=== PATIENT | female | born 1940 | race Hispanic/Latino ===

== ENCOUNTER 2016-12-26 18:05 | Emergency (ER) | payer MEDICARE ==
[2016-12-27 00:30] VITALS: BP 149/81
--- NOTE | 2016-12-27 00:51 | Cat Scan Report ---
FINAL REPORT EXAM: CT HEAD/BRAIN WO CON HISTORY: fall TAKES BLOOD THINNERS TECHNIQUE: Noncontrast CT axial images of the brain. PRIORS: None. FINDINGS: Minimal, extra-axial hyperdense focus over left anterior temporal region measuring approximately 2 mm in width suspicious for tiny subdural hematoma. No significant mass effect. No parenchymal mass, hemorrhage, midline shift or hydrocephalus. No evidence of acute cortical infarct. No other abnormal, extra-axial fluid or air collection. Age-related volume loss. Osseous calvarium grossly intact. Diffuse soft tissue edema or contusion in the left frontotemporal scalp. IMPRESSION: 1. Findings probably representing minimal subdural hematoma over left temporal region without significant mass effect. Clinical correlation and followup suggested. Dr. Owusu discussed results with Dr. Xiong on 27 Dec 2016 at approximately 0044 hours EST.
--- NOTE | 2016-12-27 00:56 | Emergency Department Report ---
ED Fall HPI - General Chief Complaint: Fall Stated Complaint: FALL/LUMP ON SIDE OF HEAD /AND WRIST Time Seen by Provider: 12/27/16 00:33 Source: patient Mode of arrival: Ambulatory - History of Present Illness Initial Comments: Pt is a 76 yr old F with a h/o Afib on eliquis who presents s/p fall. Pt reports she slipped in the kitchen and fell onto her L hip, L wrist, and struck the L side of head on the cabinet. Pt denies any LOC or neck pain. Pt now c/o mild MALONE, L wrist deformity and pain, and L hip pain. Otherwise no fevers, chills , neck pain, dizziness, vision changes, hearing changes, parasthesias, numbness , chest pain, sob, abd pain, or back pain - Related Data Previous Rx's Medication Instructions Recorded Last Taken Type Acetaminophen [Acetaminophen TAB] 650 mg PO Q4H PRN #20 tablet 12/08/16 Unknown Rx Amiodarone [Cordarone 200 MG TAB] 200 mg PO DAILY #30 tablet 12/08/16 Unknown Rx Eliquis 5 mg PO Q12H #60 12/08/16 Unknown Rx Furosemide [Lasix TAB] 40 mg PO QDAY #30 tablet 12/08/16 Unknown Rx HYDROcodone/APAP 5-325 [[place] 1 each PO Q6H PRN #20 tablet 12/08/16 Unknown Rx 5-325 mg TAB] Levothyroxine [Synthroid] 125 mcg PO QAM #30 tablet 12/08/16 Unknown Rx Lisinopril [Zestril TAB] 2.5 mg PO QDAY #15 tablet 12/08/16 Unknown Rx Metoprolol [Lopressor TAB] 25 mg PO BID #60 tablet 12/08/16 Unknown Rx Pravastatin Sodium [Pravastatin] 20 mg PO QHS #60 tablet 12/08/16 Unknown Rx Allergies Allergy/AdvReac Type Severity Reaction Status Date / Time No Known Allergies Allergy Verified 12/03/16 08:24 ED Review of Systems ROS: Stated complaint: FALL/LUMP ON SIDE OF HEAD /AND WRIST Other details as noted in HPI ED Past Medical Hx - Past Medical History Previous Medical History?: Yes Hx Hypertension: Yes Additional medical history: high colesterol, hypo thyroid, PE - Surgical History Past Surgical History?: Yes Hx Pacemaker: Yes (placed here 12/07/16) - Social History Smoking Status: Never Smoker Substance Use Type: None - Medications Home Medications: Home Medications Medication Instructions Recorded Confirmed Last Taken Type Acetaminophen [Acetaminophen TAB] 650 mg PO Q4H PRN #20 tablet 12/08/16 Unknown Rx Amiodarone [Cordarone 200 MG TAB] 200 mg PO DAILY #30 tablet 12/08/16 12/27/16 Unknown Rx Eliquis 5 mg PO Q12H #60 12/08/16 12/27/16 Unknown Rx Furosemide [Lasix TAB] 40 mg PO QDAY #30 tablet 12/08/16 12/27/16 Unknown Rx HYDROcodone/APAP 5-325 [[place] 1 each PO Q6H PRN #20 tablet 12/08/16 12/27/16 Unknown Rx 5-325 mg TAB] Levothyroxine [Synthroid] 125 mcg PO QAM #30 tablet 12/08/16 12/27/16 Unknown Rx Lisinopril [Zestril TAB] 2.5 mg PO QDAY #15 tablet 12/08/16 12/27/16 Unknown Rx Metoprolol [Lopressor TAB] 25 mg PO BID #60 tablet 12/08/16 12/27/16 Unknown Rx Pravastatin Sodium [Pravastatin] 20 mg PO QHS #60 tablet 12/08/16 12/27/16 Unknown Rx ED Physical Exam - General Limitations: No Limitations General appearance: alert, in no apparent distress - Head Head exam: Present: normocephalic, other (abrasion and hematoma to the L bahai) - Eye Eye exam: Present: normal appearance, PERRL, EOMI. Absent: scleral icterus, conjunctival injection - ENT ENT exam: Present: mucous membranes moist - Neck Neck exam: Present: normal inspection, full ROM. Absent: tenderness, meningismus, lymphadenopathy - Respiratory Respiratory exam: Present: normal lung sounds bilaterally. Absent: respiratory distress, wheezes, rales, rhonchi, stridor, chest wall tenderness - Cardiovascular Cardiovascular Exam: Present: regular rate, normal rhythm. Absent: systolic murmur, diastolic murmur, rubs, gallop - GI/Abdominal GI/Abdominal exam: Present: soft, normal bowel sounds. Absent: distended, tenderness, rebound - Extremities Exam Extremities exam: Present: tenderness (L wrist tenderness), normal capillary refill, joint swelling (L wrist with deformity, neurovascularly intact), other ( limited ROM of the L wrist due to pain, proper flexion and extension, FROM at the hips bilaterally). Absent: normal inspection, pedal edema - Back Exam Back exam: Present: normal inspection - Neurological Exam Neurological exam: Present: alert, oriented X3, CN II-XII intact, reflexes normal. Absent: motor sensory deficit - Psychiatric Psychiatric exam: Present: normal affect, normal mood - Skin Skin exam: Present: warm, dry, intact, normal color. Absent: rash ED Course Vital Signs 12/26/16 12/27/16 12/27/16 19:40 00:27 00:33 Temperature 98 F 98.1 F Pulse Rate 80 80 Respiratory 18 20 20 Rate Blood Pressure 153/95 Blood Pressure 149/81 [Left] O2 Sat by Pulse 94 96 96 Oximetry ED Medical Decision Making - Lab Data Result diagrams: 12/27/16 02:29 12/27/16 02:29 - Radiology Data Radiology results: report reviewed, image reviewed 0048: Rads results discussed , patient has a 2mm SDH with no shift or mass effect L wrist xray: (+)Fracture of radius, without angulation or displacement as visualized by me Pt placed in L sugar tong splint, post splinting, patient neurovascularly intact Case d/w [facility], patient set for transfer to ICU - Medical Decision Making Called out to [facility] center Critical care attestation.: If time is entered above; I have spent that time in minutes in the direct care of this critically ill patient, excluding procedure time. ED Disposition Clinical Impression: Fall, SDH (subdural hematoma), Radius fracture Disposition: DC/TX ANOTHER TYPE HEALTHCARE Is pt being admited?: No Condition: Stable
--- NOTE | 2016-12-27 01:00 | XRay Report ---
FINAL REPORT EXAM: XR HIP 2-3V LT HISTORY: HIP PAIN TECHNIQUE: AP view of pelvis and frog-leg lateral view of left hip. PRIORS: None. FINDINGS: Status post right total hip arthroplasty grossly intact and normally located. Diffuse osteopenia and degenerative change in left hip joint. No apparent fracture or dislocation. Soft tissues grossly unremarkable. Probable postsurgical change of ventral hernia repair incidentally noted. IMPRESSION: 1. No acute osseous abnormality. 2. Postsurgical and degenerative change.
--- NOTE | 2016-12-27 01:03 | XRay Report ---
FINAL REPORT EXAM: XR WRIST 2V LT HISTORY: WRIST PAIN TECHNIQUE: Frontal and lateral views of left wrist. PRIORS: None. FINDINGS: Fracture in distal radial metaphysis, with questionable intra-articular extension. No significant displacement, angulation or apparent dislocation. Diffuse dorsal soft tissue edema. Diffuse osteopenia and degenerative change in the thumb CMC joint. IMPRESSION: 1. Fracture left distal radius.
--- NOTE | 2016-12-27 02:07 | Cat Scan Report ---
FINAL REPORT EXAM: CT CERVICAL SPINE WO CON HISTORY: trauma fall TECHNIQUE: Spiral CT scanning of the cervical spine, with axial images and multiplanar reformations. PRIORS: None. FINDINGS: Mild levoconvex curvature may be positional versus soft tissue spasm. Diffuse osteopenia. Multilevel degenerative disc disease and spondylosis. No acute compression deformity or gross malalignment of cervical vertebral bodies. No acute fracture identified. No acute, osseous central spinal canal encroachment. Paraspinal soft tissues grossly unremarkable. Bilateral carotid calcifications. IMPRESSION: 1. No acute compression deformity or apparent fracture in the cervical spine. 2. Degenerative spondylosis.
[2016-12-27 03:00] LABS: Basophils % (Auto) 0.8 % (0.0-1.8); Eosinophils % (Auto) 1.5 % (0.0-4.3); Hematocrit 41.1 % (30.3-42.9); Hemoglobin 13.7 gm/dl (10.1-14.3); Mean Corpuscular HGB Conc 33 % (30-34); Mean Corpuscular Hemoglobin 28 pg (28-32); Mean Corpuscular Volume 85 fl (79-97); Platelet Count 275 K/mm3 (140-440); Red Blood Count 4.83 M/mm3 (3.65-5.03); Red Cell Distribution Width 14.2 % (13.2-15.2); White Blood Count 9.3 K/mm3 (4.5-11.0)
[2016-12-27 03:20] LABS: Anion Gap 20 mmol/L; Blood Urea Nitrogen 18 mg/dL (7-17); Calcium 9.1 mg/dL (8.4-10.2); Carbon Dioxide 24 mmol/L (22-30); Chloride 97.8 mmol/L (98-107); Glucose 116 mg/dL (65-100); Potassium 4.5 mmol/L (3.6-5.0); Sodium 137 mmol/L (137-145)
[2016-12-27 03:22] LABS: INR 1.02 (0.87-1.13)
== END 2016-12-27 03:17 | disposition other institution (70) ==
LOC: ED 18:05
DX: S06.5X0A Traumatic subdural hemorrhage without loss of consciousness, initial encounter (principal); S52.92XA Unspecified fracture of left forearm, initial encounter for closed fracture; I10 Essential (primary) hypertension; E78.00 Pure hypercholesterolemia, unspecified; Z95.0 Presence of cardiac pacemaker; W01.198A Fall on same level from slipping, tripping and stumbling with subsequent striking against other object, initial encounter; Y93.89 Activity, other specified; Y99.8 Other external cause status; Y92.89 Other specified places as the place of occurrence of the external cause
CPT/HCPCS: 36415; 70450; 72125; 80048; 85025; 85610; 86850; 86900; 86901; 93005; 93010